=== PATIENT | male | born 1980 | race Caucasian/White ===

== ENCOUNTER 2018-09-28 16:15 | Emergency (ER) | payer BC ==
[~2018-09-28] VITALS: Ht 182.9 cm; Wt 106.6 kg
[2018-09-28 16:17] VITALS: BP 140/80
--- NOTE | 2018-09-28 16:20 | NUR ---
PT BIBA C/O CP X1 HOUR. PT REPORTED UNPROVOKED MID-STERNAL NON-RADIATING TIGHTNESS CP AT 6/10 X1 HR AGO AND STOPPED 30MIN AGO. PARAMEDICS STARTED 20G IV IN LT HAND AND ADMINISTERED 324MG ASPIRIN. PT REPORTS NO CP, SOB, N/V AT THIS TIME. MEDHX:ANXIETY
[2018-09-28 16:58] LABS: BASOPHILS # (AUTO) 0.1 K/uL (0.00-0.22); BASOPHILS % (AUTO) 0.6 % (0.0-2.0); EOSINOPHILS # (AUTO) 0.1 K/uL (0-0.4); EOSINOPHILS % (AUTO) 1.2 % (0.0-4.0); HEMATOCRIT 49.2 % (36-52); HEMOGLOBIN 17.4 g/dL (12.0-18.0); LYMPHOCYTES # (AUTO) 1.7 K/uL (2.0-11.5); LYMPHOCYTES % (AUTO) 15.6 % (20.5-51.1); MEAN CORPUSCULAR HEMOGLOBIN 32 pg (27-31); MEAN CORPUSCULAR HGB CONC 35 g/dL (33-37); MONOCYTES # (AUTO) 0.5 K/uL (0.8-1.0); MONOCYTES % (AUTO) 4.7 % (1.7-9.3); NEUTROPHILS # (AUTO) 8.7 K/uL (1.8-7.7); NEUTROPHILS % (AUTO) 77.9 % (42.2-75.2); PLATELET COUNT (AUTO) 255 K/uL (140-450); RED BLOOD CELL COUNT(AUTO) 5.47 MIL/uL (4.20-6.10); RED CELL DISTRIBUTION WIDTH 12.4 % (11.6-13.7); WHITE BLOOD COUNT (AUTO) 11.2 K/uL (4.8-10.8)
[2018-09-28 17:12] LABS: ANION GAP 10.1 (8-16); CARBON DIOXIDE 29.7 mmol/L (21-32); CHLORIDE 104 mmol/L (98-107); GFR ARICAN-AMERICAN 108 mL/min (>90); GLUCOSE 131 mg/dL (74-106); POTASSIUM 3.8 mmol/L (3.5-5.1); SODIUM SERUM 140 mmol/L (136-145); UREA NITROGEN, BLOOD 14 mg/dL (7-18)
[2018-09-28 17:23] LABS: TOTAL BILIRUBIN 1.3 mg/dL (0.0-1.0)
[2018-09-28 17:26] LABS: ACETAMINOPHEN < 0.5 ug/ml (10-30); SALICYLATE < 2.8 mg/dL (2.8-20.0)
[2018-09-28 17:36] LABS: ASPARTATE AMINOTRANSFERASE 22 U/L (15-37)
[2018-09-28 17:37] LABS: BARBITURATE, URINE NEG. ng/ml (NEG <=200); BENZODIAZEPINE, URINE NEG. ng/mL (NEG <=200); CANNABINOID, URINE NEG. ng/mL (NEG <=50); COCAINE, URINE NEG. ng/mL (NEG <=300); OPIATE, URINE NEG. ng/mL (NEG <=2000); PHENCYCLIDINE SCREEN,URINE NEG. ng/mL (NEG <=25)
--- NOTE | 2018-09-28 17:48 | NUR ---
Patient appears to be resting comfortably in bed. Vital Signs within normal limits. Respirations even and unlabored.
[2018-09-28 18:02] VITALS: BP 140/80
--- NOTE | 2018-09-28 18:12 | NUR ---
Patient discharged with v/s stable. Written and verbal after care instructions given and explained. Patient verbalized understanding. Ambulatory with steady gait. All questions addressed prior to discharge. Advised to follow up with PMD.
== END 2018-09-28 18:12 | disposition home or self-care (01) ==
LOC: MED 16:15
DX: R07.9 Chest pain, unspecified (principal); R00.2 Palpitations; R61 Generalized hyperhidrosis; R06.4 Hyperventilation
CPT/HCPCS: 36415; 71045; 80053; 80305; 81002; 84484; 85025; 93005; 99284; G0480; G0482; Q0092